=== PATIENT | male | born 1990 | race Caucasian/White ===

== ENCOUNTER 2019-02-19 13:46 | Outpatient (CLI) | payer BC ==
--- NOTE | 2019-02-19 14:47 | RAD ---
LUMBAR SPINE 2 VIEWS: HISTORY: Enteropathic arthropathy, back soreness for several years. The disk spaces are adequately preserved. No evidence for acute fracture or dislocation or significa nt malalignment. No significant disk-osteophytosis. No bony erosive or destructive changes. The SI joints appear to be poorly defined with some sclerotic margins. IMPRESSION: Unremarkable lumbar spine. Sacroiliac joints show some sclerosis and are poorly defined raising conc mohini for bilateral sacroiliitis, nonspecific. Additional imaging in this regard might be of benefit i f clinically indicated. POS: [facility]
== END 2019-02-19 13:47 | disposition home or self-care (01) ==
LOC: BICRAD 13:46
PROVIDERS: ATTEND Internal Medicine Rheumatology
DX: M07.60 Enteropathic arthropathies, unspecified site (principal); G95.89 Other specified diseases of spinal cord
CPT/HCPCS: 72100

== ENCOUNTER 2019-03-12 15:22 | Outpatient (CLI) | payer BC ==
--- NOTE | 2019-03-12 15:42 | RAD ---
EXAM: Chest PA and lateral: HISTORY: Ankylosing spondylitis. COMPARISON: None FINDINGS: Heart: Normal cardiac silhouette Aorta: Unremarkable Pulmonary vessels: Normal Costophrenic angles: Costophrenic angles are clear. Lungs: No consolidation or masses. Pneumothorax: No pneumothorax Osseous structures: No osseous abnormalities IMPRESSION: No acute cardiopulmonary process.
== END 2019-03-12 15:23 | disposition home or self-care (01) ==
LOC: BICRAD 15:22
PROVIDERS: ATTEND Internal Medicine Rheumatology
DX: M45.0 Ankylosing spondylitis of multiple sites in spine (principal)
CPT/HCPCS: 71046